=== PATIENT | male | born 1975 | race Caucasian/White ===

== ENCOUNTER 2018-10-12 11:33 | Emergency (ER) | payer BC ==
[~2018-10-12] VITALS: Ht 170.2 cm; Wt 104.5 kg
[2018-10-12 11:35] VITALS: TEMP 97.5
[2018-10-12] MEDS ORDERED: PREDNISONE20 MG PO (13:41)
[2018-10-12] MEDS ORDERED: EPIPEN 2-PAK1 MG/ML IM (13:41)
[2018-10-12] MEDS ORDERED: PROAIR HFA0.09 MG/AC IH (14:02)
[2018-10-12] MEDS ORDERED: VYVANSE60 MG PO (14:02)
[2018-10-12] MEDS ORDERED: BREO IH (14:03)
[2018-10-12 14:08] VITALS: BP 104/71; PULSE 115
[2018-10-12] MEDS ORDERED: ZOCOR5 MG PO (14:08)
== END 2018-10-12 14:11 | disposition home or self-care (01) ==
LOC: COL.ER 11:33
DX: T78.40XA Allergy, unspecified, initial encounter (principal); I10 Essential (primary) hypertension; J45.909 Unspecified asthma, uncomplicated; Z79.51 Long term (current) use of inhaled steroids
CPT/HCPCS: J0171; J7512